=== PATIENT | female | born 1935 | race Caucasian/White ===

== ENCOUNTER 2023-09-08 14:49 | Emergency (ER) | payer MEDICARE, SELFPAY ==
[2023-09-08 14:55] VITALS: BP 140/57
--- NOTE | 2023-09-08 15:40 | ED.GENMED ---
History of Present Illness
General
Chief Complaint: Fall
Source: patient
Exam Limitations: none
Time Seen by Provider: 09/08/23 15:25
Nursing documentation reviewed up to this point in time: agreed with
Travel History
Have you had any contact with someone who has COVID-19?: No
Do you have any symptoms of coronavirus? Fever > 100 degrees, chills, cough, shortness of breath, sore throat, loss of taste or smell, muscle aches, or headache?: No
History of Present Illness
History of Present Illness:
87-year-old female with [place] history of A-fib currently on Xarelto, hypertension hyperlipidemia hypothyroidism presenting to the emergency department today after she lost her balance and fell hitting her upper back did not hit her head did not
lose consciousness ongoing upper back pain has been icing it for the last few hours but has had ongoing pain since. Denies numbness weakness abdominal pain chest pain shortness of breath.
Past History
Past History
ED Past Medical History: Arrthythmia (Paroxysmal atrial fibrillation), HTN, Hypothyroidism and Other (Osteoarthritis)
ED Past Surgical History: Appendectomy and Cardiac (Atrial myxoma removal 2018)
Patient has exhibited threatening behavior?: No
PSI?: No
Social History
Tobacco: Non-smoker
Alcohol: None
Personal:
Living: with family
Employment: Retired
Family History
Family History: Other (Noncontributory)
Review of Systems
Review of Systems
Allergies reviewed?: Yes
All Other Systems: ROS reviewed and negative except as documented in HPI and ROS
Phy Exam
Physical Exam
Physical Exam:
GENERAL: Alert , in no apparent distress
EYE: pupils equal and reactive
NECK: Supple, no significant adenopathy.
ENT: o/p clr, mmm.
CARDIAC: Regular rate and rhythm .
LUNGS: Clear breath sounds bilaterally, no acute respiratory distress, no wheezes/rales/rhonchi
ABDOMEN: Soft, without focal tenderness, no r/g, no cvat
NEUROLOGICAL: Alert and oriented, no focal neuro deficits
SKIN: Warm and dry, skin intact.
MUSCULOSKELETAL: Tenderness palpation to the upper back at the lower cervical and upper thoracic region swelling or bruising at midline some upper thoracic paraspinal muscle tenderness. No tenderness to the ribs clear lungs. No edema, well
perfused.
PSYCH: Normal and appropriate interaction.
Course
Orders/Labs/Results
Orders:
Orders
09/08/23 15:32
CT Cervical Spine W/o Iv Contr Urgent
Comment:
Reason For Exam: lower cervical pain after fall
CT Head W/o Iv Contrast Urgent
Comment:
Reason For Exam: fall on thnners
CT Thoracic Spine W/o Iv Contr Urgent
Comment:
Reason For Exam: upper thoracic pain after fall
09/08/23 16:47
Acetaminophen [Tylenol] 1,000 mg PO NOW STA
Vital Signs
Initial and Last Documented VS:
Initial Vital Signs
Temp Pulse Resp BP Pulse Ox
97.7 F 52 18 140/57 97
09/08/23 14:55 09/08/23 14:55 09/08/23 14:55 09/08/23 14:55 09/08/23 14:55
Last Documented Vital Signs
Temp Pulse Resp BP Pulse Ox
97.7 F 52 18 140/57 97
09/08/23 14:55 09/08/23 14:55 09/08/23 14:55 09/08/23 14:55 09/08/23 14:55
MDM/Problems Addressed
MDM/Problems Addressed:
87-year-old female presenting to the emergency department today with concerns of back discomfort after she lost her balance and fell hitting her upper back does not believe she hit her head but is on Xarelto. Normal neurologic evaluation here clear
lungs tenderness to lower cervical and upper thoracic region. Plan for CT scan for further assessment. Patient's pain well-controlled with Tylenol able to ambulate well here CT scan of the head and neck without acute abnormalities thoracic spine
showing a T3 compression fracture. Patient with no neurologic symptoms. Appears to be stable for outpatient follow-up as needed. Otherwise doing well here ambulating well. Return precautions given.
*Critical Care Note
Total Time (30-74mins, 75-104mins- exclusive of procedures): Not Applicable
ED Attending Note
-
Portions of this chart may have been created with voice recognition software.� Occasional wrong word or��sound alike� substitutions may have occurred due to the inherent limitations of voice recognition software.
Discharge Plan
Departure
Patient Disposition: Home (Routine Discharge)
Date of Disposition: 09/08/23
Time of Disposition: 17:05
Patient with high blood pressure during this ER visit?: No
Condition: Good
Covid-19: Not Applicable
Discharge Problem:
Compression fracture of thoracic vertebra
Instructions: Vertebral compression fracture
Prescriptions:
No Action
losartan 50 MG tablet
100 mg PO DAILY
atorvastatin 40 MG tablet
40 mg PO QPM
levothyroxine 88 MCG tablet
88 mcg PO DAILY
metoprolol succinate 25 MG tablet extended release 24 hr
12.5 mg PO DAILY
multivitamin Tablet
1 tab PO QPM
amlodipine 5 mg Tablet
5 mg PO DAILY
Xarelto 20 mg Tablet
20 mg PO QPM
acetaminophen [Tylenol Extra Strength] 500 MG tablet
1,000 mg PO Q6HPRN PRN (Reason: pain)
calcium carbonate-vitamin D3 600 mg-5 mcg (200 unit) Tablet
1 tab PO QPM
Systane (propylene glycol) 0.4-0.3 % Drops
1 drp BOTH EYES BID PRN (Reason: Eye condition)
spironolactone 25 mg tablet
25 mg PO DAILY
coenzyme Q10 [CoQ-10] 100 mg Capsule
100 mg PO QPM
Referrals:
Severo Ratliff MD [Family Provider] -
Anyi Hickey MD [Active] - Follow up in 1 week
Activity Restrictions/Additional Instructions:
You came to the emergency department today with concerns of a fall where you hit your back. You are found to have a T3 compression fracture but no other emergent findings. This is treated with pain medication and should heal over time. If
symptoms are ongoing please follow closely with neurosurgery for further recommendation and assessment. Return to the emergency department for any worsening, new or concerning symptoms.
Interventions
Interventions:
*Risk Screen - Suicide Last Done: 09/08/23 15:44
*General Assessment Last Done: 09/08/23 15:44
*Neglect/Abuse Screening Last Done: 09/08/23 15:44
ED- Fall Risk Assessment Last Done: 09/08/23 15:44
*ED COVID-19 Vaccine History Last Done: 09/08/23 15:44
ED- Neurological Assessment Last Done: 09/08/23 15:43
ED-Skin Assessment Last Done: 09/08/23 16:29
Discharge Date and Time
Print Language: BARBADIAN
[2023-09-08] MEDS: TYLENOL 1000 MG PO (17:00)
== END 2023-09-08 17:23 | disposition home or self-care (01) ==
LOC: EMR 14:49
PROVIDERS: EMERGENCY PHYSICIAN Emergency Medicine; FAMILY PHYSICIAN Internal Medicine
DX: M48.54XA Collapsed vertebra, not elsewhere classified, thoracic region, initial encounter for fracture (principal); S20.229A Contusion of unspecified back wall of thorax, initial encounter; W19.XXXA Unspecified fall, initial encounter; I48.0 Paroxysmal atrial fibrillation; I10 Essential (primary) hypertension; E03.9 Hypothyroidism, unspecified; M19.90 Unspecified osteoarthritis, unspecified site; E78.5 Hyperlipidemia, unspecified; Z79.01 Long term (current) use of anticoagulants
CPT/HCPCS: 99284; 70450; 72125; 72128

== ENCOUNTER → 2023-10-07 09:33 | Outpatient (REF) | payer MEDICARE, SELFPAY ==
[2023-10-07 11:56] LABS: ALT (SGPT) 26 U/L (0-35); AST (SGOT) 28 U/L (14-36); Albumin 4.1 g/dl (3.5-5.0); Alkaline Phosphatase 77 U/L (38-126); Blood Urea Nitrogen 11 mg/dl (7-17); Calcium 9.9 mg/dl (8.4-10.2); Carbon Dioxide 31 mmol/L (22-30); Chloride 100 mmol/L (98-107); Glucose 102 mg/dl (70-99); HDL Cholesterol 78 mg/dl; LDL Cholesterol, Calculated 82 mg/dl; Potassium 4.3 mmol/L (3.5-5.1); Sodium 139 mmol/L (135-145); Total Bilirubin 0.3 mg/dl (0.2-1.3); Total Cholesterol 176 mg/dl (50-199); Total Protein 6.8 g/dl (6.3-8.2); Triglyceride 83 mg/dl (10-149); Very Low Density Lipoprotein 16 mg/dl (0-30); eGFR > 60.00
[2023-10-07 12:26] LABS: TSH 1.18 uIU/ml (0.47-4.68)
== END ==
LOC: REG 09:33
PROVIDERS: ATTENDING PHYSICIAN Internal Medicine Cardiovascular Disease; FAMILY PHYSICIAN Urology Pediatric Urology; REFERRING PHYSICIAN Internal Medicine
DX: E78.5 Hyperlipidemia, unspecified (principal); I10 Essential (primary) hypertension; T46.2X Poisoning by, adverse effect of and underdosing of other antidysrhythmic drugs
CPT/HCPCS: 36415; 80053; 80061; 84443

== ENCOUNTER → 2024-01-23 14:23 | Outpatient (REF) | payer MEDICARE, SELFPAY | LOC: PAVMRI 14:23 | PROVIDERS: ATTENDING PHYSICIAN Orthopaedic Surgery; FAMILY PHYSICIAN Internal Medicine | DX: M54.16 Radiculopathy, lumbar region (principal) | CPT/HCPCS: 72148 ==

== ENCOUNTER → 2024-04-09 10:29 | Outpatient (REF) | payer MEDICARE, SELFPAY ==
[2024-04-09 13:05] LABS: ALT (SGPT) 27 U/L (0-35); AST (SGOT) 27 U/L (14-36); Albumin 4.3 g/dl (3.5-5.0); Alkaline Phosphatase 51 U/L (38-126); Blood Urea Nitrogen 11 mg/dl (7-17); Calcium 9.2 mg/dl (8.4-10.2); Carbon Dioxide 31 mmol/L (22-30); Chloride 99 mmol/L (98-107); Glucose 87 mg/dl (70-99); HDL Cholesterol 95 mg/dl; LDL Cholesterol, Calculated 75 mg/dl; Potassium 4.2 mmol/L (3.5-5.1); Sodium 141 mmol/L (135-145); Total Bilirubin 0.4 mg/dl (0.2-1.3); Total Cholesterol 189 mg/dl (50-199); Total Protein 6.8 g/dl (6.3-8.2); Triglyceride 95 mg/dl (10-149); Very Low Density Lipoprotein 19 mg/dl (0-30); eGFR > 60.00
[2024-04-09 13:32] LABS: TSH 3.62 uIU/ml (0.47-4.68)
== END ==
LOC: REG 10:29
PROVIDERS: ATTENDING PHYSICIAN Internal Medicine Cardiovascular Disease
DX: E78.5 Hyperlipidemia, unspecified (principal); I10 Essential (primary) hypertension; E03.9 Hypothyroidism, unspecified
CPT/HCPCS: 36415; 80053; 80061; 84443

== ENCOUNTER 2024-07-12 08:16 | Inpatient (IN) | payer MEDICARE, SELFPAY ==
[2024-06-14 10:38] LABS: Hematocrit 34.2 % (37.0-47.0); Hemoglobin 10.8 g/dL (12.0-16.0); Mean Corp Hgb Conc. 31.6 g/dL (33.0-37.0); Mean Corpuscular Hgb 28.4 pg (27.0-31.0); Mean Platelet Volume 9.1 fL (7.4-10.4); Platelet Count 256 10^3/uL (130-400); White Blood Cell Count 5.3 10^3/uL (4.8-10.8)
[2024-06-14 11:06] LABS: ALT (SGPT) 38 U/L (0-35); AST (SGOT) 33 U/L (14-36); Albumin 4.5 g/dl (3.5-5.0); Alkaline Phosphatase 67 U/L (38-126); Blood Urea Nitrogen 14 mg/dl (7-17); Calcium 8.7 mg/dl (8.4-10.2); Carbon Dioxide 29 mmol/L (22-30); Chloride 96 mmol/L (98-107); Glucose 100 mg/dl (70-99); Potassium 4.2 mmol/L (3.5-5.1); Sodium 135 mmol/L (135-145); Total Bilirubin 0.6 mg/dl (0.2-1.3); eGFR > 60.00
[2024-06-14 14:11] VITALS: BMI 26.1
[2024-06-14 16:29] LABS: Iron 42 ug/dl (37-170)
[2024-06-14 16:38] LABS: Percent Saturation 11 % (20-50); Total Iron Binding Capacity 361 ug/dl (265-497)
[2024-06-14 17:41] LABS: Ferritin 7.4 ng/ml (11.1-264.0)
[2024-06-14 17:55] LABS: Vitamin B12 566 pg/ml (239-931)
[2024-07-05 11:54] VITALS: BMI 26.1
[2024-07-12] VITALS (30 sets, daily range): BP systolic 71–149; BP diastolic 39–100; PULSE 66; O2SAT 87–95; BMI 26.1
[2024-07-12] MEDS: NORMOSOL-R/PLASMALYTE-A 1000 IV (08:35)
[2024-07-12] MEDS: CELEBREX 200 MG PO (08:46)
[2024-07-12] MEDS: TYLENOL 650 MG PO ×3 (08:46→23:26)
--- NOTE | 2024-07-12 12:30 | OR.RPT ---
Operative Report
Operative Report
Orthopaedic Surgery Operative Note
DATE OF OPERATION: 07/12/2024
PREOPERATIVE DIAGNOSES: Left hip post traumatic arthritis, history of left femoral neck fracture
POSTOPERATIVE DIAGNOSES: Same
OPERATION PERFORMED: Left conversion total hip arthroplasty
SURGEON: Pablo Gu MD
CARGO SERVICES COORDINATOR: Venkat Gu PA-C who helped with patient and limb positioning and retraction
ANESTHESIA: Spinal
COMPLICATIONS: None.
ESTIMATED BLOOD LOSS: 50 mL.
DRAINS: None
SPECIMEN: None
IMPLANTS:
Biomet G7 Acetabular shell, cluster hole, 50mm
Biomet G7 highly crosslinked PE liner, neutral
Chrissy Heritage femoral stem, size 15 standard offset
Chrissy Trilogy Acetabular bone screw, 6.5mm x1
Biolox Ceramic Head, size 36mm, -3.5mm
Chrissy distal centralizer
Kenji bone plug, medium
EXPLANTS:
Mecca Cannulated 6.5mm screws x1
INDICATIONS: The patient is an 88 year-old female who sustained a left femoral neck fracture about 5 years ago. She underwent L femoral neck percutaneous pinning which healed. She developed post traumatic osteoarthritis and had daily chronic pain. I
reviewed the x-rays with the patient and we discussed treatment options. She failed to improve with nonoperative treatments. Shared decision was to proceed with surgical treatment with conversion to a total hip arthroplasty with removal of hardware.
The patient understood the risks which included, but were not limited to, bleeding, infection, failure to relieve pain, more pain than preop, damage to blood vessels and nerves, need for reoperation, mechanical failure of the implants, wound healing
problems, stiffness, instability, blood clot, pulmonary embolism, myocardial infarction, pneumonia, arrhythmia, CVA, and . The patient accepted these risks and wished to proceed. All questions were answered, and informed consent was obtained.
PROCEDURE IN DETAIL: The patient was identified in the preoperative holding area. The left hip was identified as the operative site. The patient was taken in the operating room and transferred to the operative table. General anesthesia was
performed. IV antibiotics and tranexamic acid were administered. The patient was placed in the lateral position with Stulberg hip positioners. Axillary roll was placed. The down leg was well padded. All bony prominences were well padded. The
operative limb was prepped and draped in the usual sterile fashion.
Time out was performed. A posterolateral approach to the hip was used. The skin incision was centered over the greater trochanter. This was taken down sharply through subcutaneous tissues. Meticulous hemostasis was achieved throughout the case with
electrocautery. We split the fascia alpesh in line with skin incision. There were extensive adhesions between the trochanter and the ITB including thick fibrous bursitis. The bursa was excised. I split the gluteus steve bluntly. We cauterized all
crossing vessels as we split it. I palpated the sciatic nerve and made sure it was well posterior in the operative field. It was protected throughout the case.
The distal screw was idenitfied about the lateral posterior femur. Two of the other screws had been removed prior by another surgeon at [facility]. This screw and washer were removed easily without incident. The gluteus medius and minimus were identified
and retracted anteriorly with a cobra retractor. I performed a posterior capsulotomy and tagged the edge of the capsule to aid in retraction as well as to reference length. Once the hip capsule was resected, the hip was dislocated. There was some
posterior angulation of the healed femoral neck. There was shortening as well. I performed a femoral neck osteotomy approximately 5 mm above the lesser trochanter, as per preoperative templating. The femoral head measured 47mm in outer diameter. I
placed a curve hohmann retractor over the anterior lip of the acetabulum between the labrum and the anterior hip capsule. A second retractor was placed inferiorly just distal to the transverse acetabular ligament. Circumferential view of the
acetabulum was achieved. I incised the labrum and pulvinar with electrocautery. I started with a 45mm reamer and reamed down to the medial wall. I then sequentially reamed up to a 49mm reamer. This gave a nice bed of bleeding bone with excellent
column support anteriorly and posteriorly. I impacted the acetabular shell in approximately 40 degrees of abduction and 20 degrees of anteversion. I matched the anteversion of the transverse acetabular ligament. I also made sure that the anterior
rim of the socket was not proud of the anterior wall to minimize the chance of iliopsoas tendinitis. I confirmed the cup was well-seated. I placed 1 ileal screw in the posterior superior quadrant. I then impacted a neutral liner and confirmed it was
well seated with the locking mechanism.
Attention was turned to the femur. Box osteotome and Charnley awe were used to open the canal. Fibrinous tissue was removed from proximal lateral femur where the screws had been. The femur was sequentially broached to size 15 which had appropriate
fit and fill. A trial head was placed with standard offset neck and the hip was reduced. Leg length and offset were checked and found to be appropriate. The hip was taken through complete range of motion and found to be stable in extension, the
position of sleep, and at 90 degrees of flexion and internal rotation.
Trials were removed and the femoral canal was prepared with irrigation and ribbon gauze packing sequentially. A cement restrictor was placed into the femoral canal 1cm distal to the tip of the femoral stem. This was measured off the trial femoral
stem. Once the femoral canal was prepared, the cement was mixed. Once doughy in consistency, the cement was pressurized into the canal with a cement gun. The stem was then carefully inserted into the canal with care to minimize rotation or
micromotion. Excess cement was removed. Once the cement was polymerized, the joint was irrigated copiously. The acetabular component was inspected to be free of cement particles and other debris. The final head was impacted onto clean and dry
trunion. Leg length and stability were checked again and found to be appropriate. The sciatic nerve was inspected and noted to be free of tension and uninjured.
A dilute betadine soak was performed for approximately 3 minutes, and then the hip was copiously irrigated. I repaired the capsule, piriformis, and conjoint tendon with #2 Ethibond through drill holes in the greater trochanter. Local anesthetic was
injected. The fascia alpesh was closed with #1 PDS in running fashion. The subcutaneous tissues were closed with 2-0 PDS in running fashion. The skin was reapproximated with 3-0 Monocryl subcuticular suture. I placed a Prineo dressing followed by a
Mepilex Ag dressing. The patient awoke from anesthesia without difficulty. Leg lengths were checked on the hospital bed and noted to be equal. Sponge and instrument counts were correct x2 at the end of the case.
I was present and participated in the entire procedure. I checked leg length at the ankles after transfer on the bed which was equal. The patient was sent to the recovery room in stable condition.
Bobby Gu MD
[2024-07-12] MEDS: SUBLIMAZE 50 MCG IV ×2 (12:34→13:31)
--- NOTE | 2024-07-12 12:56 | W.PN.UPDATE ---
Update Note
Progress Note Update
Post-traumatic OA w/ previous L femoral neck fx s/p Conversion to L SUE w/ Dr Gu 07/12/24
DVT prophylaxis - Xarelto at modified dosing, b/l venous foot pumps
- Will resume Xarelto 20 mg PO qPM on POD 3 if hemodynamically stable
HTN - + parameters - monitor BP
A fib/flutter s/p PVI/CTI and prolonged QT - monitor on tele
- Continue Amiodarone
- Xarelto as stated above
- Minimize QT prolongation meds such as Zofran
HFpEF - reduce hourly IVF rate to prevent fluid overload
- Resume diuretic but w/ SBP parameters to minimize post-surgical hypotension
- Monitor I&Os
Anemia 2* iron deficiency - low ferritin, borderline low iron pre-op - infuse IV iron today
- H&H in AM
- Consider oral iron upon d/c
HLD
Nonobstructive CAD
Right atrial myxoma excision 2017
DDD
Hypothyroidism
Postoperative hemangioma
[2024-07-12] MEDS: NSS 1000 IV (14:18)
[2024-07-12] MEDS: FERRLECIT 110 MG IV (14:20)
[2024-07-12] MEDS: ULTRAM 50 MG PO (15:21)
--- NOTE | 2024-07-12 17:40 | PTCARENOTE ---
Telephone report received from [facility]ALL[facility]; patient arrived @17:40 in bed, IVF infusing, 2L O2; AAOx3, (L) hip pain acceptable at level 5; admission history obtained at bedside; detailed report will be given to incoming nightshift RN to continue
with assessment and care.
[2024-07-12] MEDS: ANCEF 5 IV (18:44)
[2024-07-12] MEDS: XARELTO 10 MG PO (18:45)
[2024-07-12] MEDS: SENOKOT 17.2 MG PO (20:55)
[2024-07-12] MEDS: COLACE 100 MG PO (20:55)
[2024-07-12] MEDS: DECADRON 4 MG PO (20:55)
[2024-07-12] MEDS: BACTROBAN 2% OINTMENT 1 APPLIC NASAL (20:55)
[2024-07-12] MEDS: NEURONTIN 300 MG PO (21:19)
[2024-07-12] MEDS: PEPCID 20 MG PO (21:20)
[2024-07-13] MEDS: ANCEF 5 IV (01:02)
[2024-07-13] MEDS: TYLENOL 650 MG PO ×2 (06:32→12:15)
--- NOTE | 2024-07-13 07:31 | W.PN.ORTHO ---
Today's Communication / Plan
-
88-year-old female POD #1 Conversion L SUE 07/12/[address] Gu.
--> Post-traumatic OA w/ previous L femoral neck fx s/p Conversion to L SUE w/ Dr Gu 07/12/24.
- WBAT LLE with use of walker for ambulatory assistance.
- PT/OT Evaluation this AM. THP's.
- H&H this AM pending.
- DVT prophylaxis - Xarelto at modified dosing, b/l venous foot pumps. Will resume Xarelto 20 mg PO qPM on POD 3 if hemodynamically stable.
- Outpatient PT to begin at [facility] Monday07/16/2024. Script printed and placed in patient's chart.
- Post-operative medications sent to patient's pharmacy on file.
- Ice therapy for edema control.
- Mepilex dressing to remain in place until post-op visit.
- Follow-up as outpatient 2 weeks post-op. Appointment scheduled 07/26/2024 @ 11:00 AM.
- Plan for D/C later today after PT/OT Eval and as long as H&H stable.
Assessment
.
Distal Motor Intact: Yes
Dressing:
Mepilex dressing clean, dry and intact.
Calf is soft and nontender to palpation.
Able to plantarflex and dorsiflex left ankle.
NVI distally.
Assessment:
Post-traumatic OA w/ previous L femoral neck fx s/p Conversion to L SUE w/ Dr Gu 07/12/24.
Plan
.
Surgery / Date: Conversion L TKA 07/12/[address] Gu
DVT Prophylaxis: Other (Xarelto)
Activity:
Out of bed.
PT/OT.
WBAT LLE. THP's.
Discharge Plan: Home w/ Outpatient PT
Discharge Information:
Appreciate CM.
Subjective
.
.:
Patient resting comfortably in bed. Reports some discomfort to her left hip, although controlled with current medication regimen. She denies any paresthesias. PT/OT evaluation pending this AM. H&H also pending. She denies any acute complaints or
concerns at this time.
Vital Signs and Labs
.
Vital Signs and Labs:
Lab Results
06/14/24 09:42
Temp Pulse Resp BP Pulse Ox
97.6 F 58 18 121/55 92
07/12/24 23:45 07/12/24 23:45 07/12/24 23:45 07/12/24 23:45 07/12/24 23:45
Non-invasive Hgb result: 9.1
--- NOTE | 2024-07-13 07:40 | W.DS.TRANS ---
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
-
Discharge Instructions:
Document # [id number]
Sleep Apnea Risk Low
Discharge Diagnosis/Procedures Post-traumatic OA w/ previous L femoral neck
fracture s/p Conversion to L SUE w/ Dr Gu
Diet Low Cholesterol,Low Sodium
Activity As tolerated,With Walker
Driving Restrictions Not until seen by your Dr
Bathing Restrictions OK to Shower
Other Services PT
Wound Care Leave dressing on until seen by surgeon's office
for follow-up in 2 weeks.
Specialty Instructions Weigh Daily
Instructions:
Stand-Alone Forms: Total Hip/Knee Replacement D/C
Changes to Home Medications: No
Discharge Medications:
DC Medications w/original date entered in [facility]
atorvastatin 40 mg tablet 40 mg PO QPM High cholesterol 01/04/18
levothyroxine 88 mcg tablet 88 mcg PO DAILY Thyroid 01/04/18
multivitamin 1 tab PO QPM Supplement 04/20/22
rivaroxaban 20 mg tablet (Xarelto) 20 mg PO QPM Blood clot prevention/tx 04/20/22
calcium 600 mg (as carbonate)-vitamin D3 5 mcg (200 unit) tablet 1 tab PO QPM Supplement 07/01/22
peg 400-propylene glycol 0.4 %-0.3 % eye drops (Systane (propylene glycol)) 1 drp BOTH EYES BID PRN Eye condition 07/01/22
coenzyme Q10 100 mg capsule (CoQ-10) 100 mg PO QPM 02/08/23
amiodarone 200 mg tablet 200 mg PO DAILY 06/12/24
cefadroxil 500 mg capsule 500 mg PO BID infection prevention #14 caps 06/14/24
dexamethasone 4 mg tablet 4 mg PO BID inflammation #6 tabs 06/14/24
gabapentin 300 mg capsule 300 mg PO HS sleep/pain #10 caps 06/14/24
mupirocin 2 % topical ointment 1 applic topical BID infection prevention #1 tube 06/14/24
tramadol 50 mg tablet 50 mg PO Q6H PRN 1 tab moderate pain, 2 if severe #30 tabs 06/14/24
acetaminophen 500 mg tablet (Tylenol Extra Strength) 1,000 mg (2 x 500 mg) PO Q8H #60 tabs 07/12/24
amlodipine 5 mg tablet 5 mg PO DAILY Blood pressure #1 tab 07/12/24
chlorthalidone 25 mg tablet 25 mg PO DAILY #1 tab 07/12/24
docusate sodium 100 mg capsule 100 mg PO BID #30 caps 07/12/24
losartan 50 mg tablet 100 mg (2 x 50 mg) PO DAILY Blood pressure #1 tab 07/12/24
prochlorperazine maleate 5 mg tablet 5 mg PO TID PRN nausea and vomiting #30 tabs 07/12/24
rivaroxaban 10 mg tablet (Xarelto) 10 mg PO QPM #2 tabs 07/12/24
sennosides 8.6 mg tablet (Jazmin-zachary) 17.2 mg (2 x 8.6 mg) PO BID #30 tabs 07/12/24
Home Medication Changes
Pending Results: Yes
Additional Pending Results:
PT/OT Eval
H&H
Total time spent discharging patient (in min): 45 Minutes
[2024-07-13 07:45] VITALS: BP 115/54
[2024-07-13 07:47] LABS: Hematocrit 27.6 % (37.0-47.0)
[2024-07-13] MEDS: BACTROBAN 2% OINTMENT 1 APPLIC NASAL (08:24)
[2024-07-13] MEDS: DECADRON 4 MG PO (08:24)
[2024-07-13] MEDS: COLACE 100 MG PO (08:24)
[2024-07-13] MEDS: SENOKOT 17.2 MG PO (08:24)
[2024-07-13] MEDS: ULTRAM 50 MG PO (08:34)
[2024-07-13] MEDS: PREVNAR 20 0.5 ML IM (08:34)
[2024-07-13 10:45] VITALS: BP 120/53; BP 128/54; PULSE 55; O2SAT 89
--- NOTE | 2024-07-13 11:13 | CM ---
Addendum entered by Nazia Turner 07/13/24 12:20:
Accepted by Mikey - family at bedside and updated
IMM given
Plan - home with [facility]
f - [phone]
Original Note:
Met with pt at bedside
Pt reports she lives with her in a 2 story home; no step to enter, FF set-up
Independent at baseline, ambulates with single point cane, drives
DME - rolling walker, single point cane, shower chair, raised toilet seat, hip kit
SNF - [facility] in past
HH - [facility] in past
Has ride at discharge
PCP - Ana Paula Dietrich
Pharm - [facility]
Pts daughter plans to stay with pt for a few days and assist as needed
PT recs HH - spoke with pt - requesting [facility]
Referral sent in [facility]
Plan - anticipate home with [facility]
f - [phone]
[2024-07-13 11:27] VITALS: BP 134/59
== END 2024-07-13 14:25 | disposition home health service (06) | DRG 467 ==
LOC: 2 SOUTH 08:16
PROVIDERS: Student in an Organized Health Care Education/Training Program; ADMITTING PHYSICIAN Orthopaedic Surgery; FAMILY PHYSICIAN Internal Medicine; REFERRING PHYSICIAN Internal Medicine Cardiovascular Disease
PROC: 0SRB049 Replacement of Left Hip Joint with Ceramic on Polyethylene Synthetic Substitute, Cemented, Open Approach (ICD-10-PCS; 2024-07-12)
PROC: 0SNB0ZZ Release Left Hip Joint, Open Approach (ICD-10-PCS; 2024-07-12)
PROC: 0SPB0JZ Removal of Synthetic Substitute from Left Hip Joint, Open Approach (ICD-10-PCS; 2024-07-12)
PROC: 3E0234Z Introduction of Serum, Toxoid and Vaccine into Muscle, Percutaneous Approach (ICD-10-PCS; 2024-07-13)
DX: M12.552 Traumatic arthropathy, left hip (principal); I48.92 Unspecified atrial flutter; I50.30 Unspecified diastolic (congestive) heart failure; S32.4 Fracture of acetabulum; W19.XXXS Unspecified fall, sequela; I48.91 Unspecified atrial fibrillation; I11.0 Hypertensive heart disease with heart failure; M76.32 Iliotibial band syndrome, left leg; D50.9 Iron deficiency anemia, unspecified; E78.5 Hyperlipidemia, unspecified; G89.29 Other chronic pain; M24.652 Ankylosis, left hip; I25.10 Atherosclerotic heart disease of native coronary artery without angina pectoris; E03.9 Hypothyroidism, unspecified; D64.9 Anemia, unspecified; Z79.890 Hormone replacement therapy; Z88.5 Allergy status to narcotic agent; Z88.8 Allergy status to other drugs, medicaments and biological substances; Z91.041 Radiographic dye allergy status; Z23 Encounter for immunization; Z79.01 Long term (current) use of anticoagulants
CPT/HCPCS: 36415; 73502; 80053; 82607; 82728; 83036; 83540; 83550; 85014; 85018; 85027; 86850; 86900; 86901; 87070; 90677; 97110; 97116; 97163; 97167; 97530; 97535; C1713; C1776; G0009; J2916

== ENCOUNTER → 2024-09-11 08:46 | Outpatient (REF) | payer MEDICARE, SELFPAY | LOC: RAD 08:46 | PROVIDERS: ATTENDING PHYSICIAN Orthopaedic Surgery; FAMILY PHYSICIAN Internal Medicine | DX: Z96.642 Presence of left artificial hip joint (principal); R60.0 Localized edema; M79.605 Pain in left leg | CPT/HCPCS: 93971 ==

== ENCOUNTER 2024-09-16 15:13 | Emergency (ER) | payer MEDICARE, SELFPAY ==
[2024-09-16 15:16] VITALS: BP 164/68
--- NOTE | 2024-09-16 16:02 | ED.GENMED ---
History of Present Illness
General
Chief Complaint: Musculo-Skeletal Complaint
Source: patient
Exam Limitations: none
Time Seen by Provider: 09/16/24 16:01
Nursing documentation reviewed up to this point in time: agreed with
History of Present Illness
History of Present Illness:
The patient is a pleasant 88-year-old female with a past medical history of coronary artery disease and A-fib, on Xarelto, who was encouraged by her physical therapist today to come to the ED after suffering a fall that occurred 5 days ago. Patient
reports that about 5 days ago, she was walking in her home on hardwood floor and her sneaker got stuck on the hardwood floor, causing her to fall forward. Patient reports that she hit the left side of her head. She denies loss of consciousness,
she denies headache, she denies nausea and vomiting. She denies vision changes. She denies chest pain or shortness of breath. Patient reports that she feels well when to come here but her physical therapist today encouraged her to get checked
out. Patient recently had left hip surgery. She denies any increased pain of the left hip.
Past History
Past History
ED Past Medical History: Arrthythmia (Paroxysmal atrial fibrillation), HTN, Hypothyroidism and Other (Osteoarthritis)
ED Past Surgical History: Appendectomy and Cardiac (Atrial myxoma removal 2018)
Patient has exhibited threatening behavior?: No
PSI?: No
Social History
Tobacco: Non-smoker
Alcohol: None
Personal:
Living: with family
Employment: Retired
Family History
Family History: Other (Noncontributory)
Review of Systems
Review of Systems
Allergies reviewed?: Yes
All Other Systems: ROS reviewed and negative except as documented in HPI and ROS
Constitutional: Reports no symptoms
EENT: Reports no symptoms
Respiratory: Reports no symptoms
Cardiac: Reports no symptoms
ABD/GI: Reports no symptoms
: Reports no symptoms
Musculoskeletal: Reports other
Skin: Reports no symptoms
Neurological: Reports no symptoms
Endocrine: Reports no symptoms
Hematologic/Lymphatic: Reports no symptoms
Psychiatric: Reports no symptoms
Phy Exam
Physical Exam
Physical Exam:
Physical Exam
General: no apparent distress, not acutely ill, well and comfortable appearing. Patient has mild tenderness of left frontal scalp area.
Neck: supple. Nontender of C-spine
Heart: s1/s2 regular rate and rhythm, no murmur. equal radial pulses. No vertebral spine tenderness
Lungs: no acute respiratory distress. clear bilaterally
Abdomen: normal bowel sounds. not tender. no CVAT. Soft and nontender throughout
Neuro: alert and orientedx3. no focal neurological deficits
Skin: no rash
Psychiatric: well kept. interactive and cooperative
Extremities: no edema. no calf tenderness. negative homans. good distal pulses
Course
Orders/Labs/Results
Orders:
Orders
09/16/24 15:25
CT Head W/o Iv Contrast Urgent
Comment:
Reason For Exam: fall
CR Hip - LT w/wo Pel 2-3 Vw* Urgent
Comment:
Reason For Exam: fall
Include a pelvis x-ray?: Yes
Vital Signs
Initial and Last Documented VS:
Initial Vital Signs
Temp Pulse Resp BP Pulse Ox
97.9 F 62 19 164/68 96
09/16/24 15:16 09/16/24 15:16 09/16/24 15:16 09/16/24 15:16 09/16/24 15:16
Last Documented Vital Signs
Temp Pulse Resp BP Pulse Ox
97.9 F 62 19 164/68 96
09/16/24 15:16 09/16/24 15:16 09/16/24 15:16 09/16/24 15:16 09/16/24 15:16
MDM/Problems Addressed
Differential Diagnosis Includes:
Closed head injury, subdural hematoma, subarachnoid hemorrhage
MDM/Problems Addressed:
Patient presents after having an acute fall 5 days ago
Chronic conditions affecting care: HTN
Acute Exacerbation and/or Progression of Chronic Illness:
Patient is acutely hypertensive, likely due to being in the ED and being slightly anxious
Acute Exacerbation and/or Progression of Chronic Illness: HTN
*Radiology
Radiology exam reviewed: preliminary read by ED provider (Left hip x-ray reviewed by me. No acute fracture) and radiology read reviewed
*Pulse Oximetry
Patient hypoxic: no
*EKG
Interpreted by ED Provider?: NA
*Brine Tank Operator Interpretation
Rate: Brine Tank Operator- N/A
*Critical Care Note
Total Time (30-74mins, 75-104mins- exclusive of procedures): Not Applicable
Update Note
Update Note:
Patient looks extremely well and comfortable. Injury occurred 5 days ago and patient still has no headache, dizziness, nausea vomiting or visual changes. She is walking comfortably. There is no sign of C-spine pain to suggest injury.
ED Attending Note
-
Portions of this chart may have been created with voice recognition software.� Occasional wrong word or��sound alike� substitutions may have occurred due to the inherent limitations of voice recognition software.
Discharge Plan
Departure
Patient Disposition: Home (Routine Discharge)
Date of Disposition: 09/16/24
Time of Disposition: 16:10
Patient with high blood pressure during this ER visit?: Yes
Condition: Good
Covid-19: Not Applicable
Discharge Problem:
Closed head injury, Fall from slip, trip, or stumble, Contusion of scalp
Instructions: Head injury in adults, Contusion (DC), BLOOD PRESSURE
Prescriptions:
No Action
atorvastatin 40 MG tablet
40 mg PO QPM
levothyroxine 88 MCG tablet
88 mcg PO DAILY
multivitamin Tablet
1 tab PO QPM
Xarelto 20 mg Tablet
20 mg PO QPM
calcium carbonate-vitamin D3 600 mg-5 mcg (200 unit) Tablet
1 tab PO QPM
Systane (propylene glycol) 0.4-0.3 % Drops
1 drp BOTH EYES BID PRN (Reason: Eye condition)
coenzyme Q10 [CoQ-10] 100 mg Capsule
100 mg PO QPM
amiodarone 200 mg tablet
200 mg PO DAILY
mupirocin 2 % ointment
1 applic topical BID Qty: 1 0RF
Patient Comments:
Patient administered this medication this am 07/12/23 @06:30. Patient started this medication on 07/09/24 in the morning.
cefadroxil 500 mg capsule
500 mg PO BID Qty: 14 0RF
Rx Instructions:
*Take w/ food
*Take w/ probiotic
*POST-OP USE
dexamethasone 4 mg tablet
4 mg PO BID Qty: 6 0RF
Rx Instructions:
take with food
post-op use only
tramadol 50 mg tablet
50 mg PO Q6H PRN (Reason: 1 tab moderate pain, 2 if severe) Qty: 30 0RF
Rx Instructions:
ongoing therapy
gabapentin 300 mg capsule
300 mg PO HS Qty: 10 0RF
docusate sodium 100 mg Capsule
100 mg PO BID Qty: 30 0RF
prochlorperazine maleate 5 mg Tablet
5 mg PO TID PRN (Reason: nausea and vomiting) Qty: 30 0RF
sennosides [Jazmin-zachary] 8.6 mg Tablet
17.2 mg PO BID Qty: 30 0RF
Xarelto 10 mg Tablet
10 mg PO QPM Qty: 2 0RF
Rx Instructions:
Take night of 07/13 and 07/14; then resume Xarelto 20 mg nightly on 07/15.
losartan 50 MG tablet
100 mg PO DAILY Qty: 1 0RF
Rx Instructions:
HOLD IF systolic blood pressure <130 while on post-surgical narcotics.
chlorthalidone 25 mg tablet
25 mg PO DAILY Qty: 1 0RF
Rx Instructions:
HOLD IF systolic blood pressure <130 while on post-surgical narcotics
amlodipine 5 mg Tablet
5 mg PO DAILY Qty: 1 0RF
Rx Instructions:
HOLD IF systolic blood pressure <130 while on post-surgical narcotics.
acetaminophen [Tylenol Extra Strength] 500 MG tablet
1,000 mg PO Q8H Qty: 60 0RF
Rx Instructions:
DO NOT exceed >3000 mg daily.
Referrals:
Ana Paula Dietrich, [Family Provider] -
Activity Restrictions/Additional Instructions:
Paulina Guy had a CAT scan done of her brain which shows no acute injury. Paulina Guy also had an x-ray done of her left hip which shows no trauma to her bone or arthroplasty
Interventions
Interventions:
*Risk Screen - Suicide Last Done: 09/16/24 15:19
*General Assessment Last Done: 09/16/24 15:19
*Neglect/Abuse Screening Last Done: 09/16/24 15:19
*ED COVID-19 Vaccine History Last Done: 09/16/24 15:19
*Nursing Disposition Last Done: 09/16/24 16:25
ED-Musculoskeletal Assessment Last Done: 09/16/24 15:50
Discharge Date and Time
Discharge Date/Time: 09/16/24 16:47
Print Language: [place]
== END 2024-09-16 16:47 | disposition home or self-care (01) ==
LOC: EMR 15:13
PROVIDERS: EMERGENCY PHYSICIAN Emergency Medicine; FAMILY PHYSICIAN Internal Medicine
DX: S09.90XA Unspecified injury of head, initial encounter (principal); S00.03XA Contusion of scalp, initial encounter; W01.0XXA Fall on same level from slipping, tripping and stumbling without subsequent striking against object, initial encounter; I25.10 Atherosclerotic heart disease of native coronary artery without angina pectoris; I48.0 Paroxysmal atrial fibrillation; I10 Essential (primary) hypertension; Z79.01 Long term (current) use of anticoagulants
CPT/HCPCS: 99285; 70450; 73502

== ENCOUNTER → 2024-10-05 08:28 | Outpatient (REF) | payer MEDICARE, SELFPAY ==
[2024-10-05 09:29] LABS: ALT (SGPT) 20 U/L (0-35); AST (SGOT) 23 U/L (14-36); Albumin 4.3 g/dl (3.5-5.0); Alkaline Phosphatase 62 U/L (38-126); Blood Urea Nitrogen 12 mg/dl (7-17); Calcium 9.6 mg/dl (8.4-10.2); Carbon Dioxide 32 mmol/L (22-30); Chloride 104 mmol/L (98-107); Glucose 97 mg/dl (70-99); HDL Cholesterol 83 mg/dl; LDL Cholesterol, Calculated 86 mg/dl; Sodium 141 mmol/L (135-145); Total Bilirubin 0.4 mg/dl (0.2-1.3); Total Cholesterol 194 mg/dl (50-199); Triglyceride 125 mg/dl (10-149); Very Low Density Lipoprotein 25 mg/dl (0-30); eGFR > 60.00
[2024-10-05 09:58] LABS: TSH 3.96 uIU/ml (0.47-4.68)
== END ==
LOC: REG 08:28
PROVIDERS: ATTENDING PHYSICIAN Internal Medicine Cardiovascular Disease
DX: E03.9 Hypothyroidism, unspecified (principal); I10 Essential (primary) hypertension; E78.5 Hyperlipidemia, unspecified
CPT/HCPCS: 36415; 80053; 80061; 84443

== ENCOUNTER 2024-10-17 20:27 | Emergency (ER) | payer MEDICARE, SELFPAY ==
[2024-10-17 20:30] VITALS: BP 169/76
--- NOTE | 2024-10-17 22:49 | ED.GENMED ---
History of Present Illness
General
Chief Complaint: Head Injury
Source: patient
Exam Limitations: none
Time Seen by Provider: 10/17/24 22:40
Nursing documentation reviewed up to this point in time: agreed with
History of Present Illness
History of Present Illness:
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 Hit face on door. No LOC. Has hematoma to her left orbit. Injury occurred tonight. Brought to ED by spouse and daughter for eval,
Past History
Past History
ED Past Medical History: Arrthythmia (Paroxysmal atrial fibrillation), HTN, Hypothyroidism and Other (Osteoarthritis)
ED Past Surgical History: Appendectomy and Cardiac (Atrial myxoma removal 2018)
Patient has exhibited threatening behavior?: No
PSI?: No
Social History
Tobacco: Non-smoker
Alcohol: None
Personal:
Living: with family
Employment: Retired
Family History
Family History: Other (Noncontributory)
Review of Systems
Review of Systems
Allergies reviewed?: Yes
All Other Systems: ROS reviewed and negative except as documented in HPI and ROS
EENT: Reports other (Left orbit swelling and bruising)
Respiratory: Reports no symptoms
Cardiac: Reports no symptoms
ABD/GI: Reports no symptoms
: Reports no symptoms
Musculoskeletal: Reports joint pain (Pain to left orbit)
Skin: Reports other (hematoma to left orbit)
Neurological: Reports no symptoms
Psychiatric: Reports no symptoms
Phy Exam
General Physical Exam
General Presentation: well appearing and no apparent distress
General age: appears stated age
General Skin: warm and dry
General Habitus: normal
General Mental: alert
Eye Exam
Eye Exam: PERRL, EOMI, conjunctiva normal and globe normal
Neurological Exam
Neurological Exam: alert, oriented x3, CN II-XII intact, no motor deficits, no sensory deficits, speech normal and normal gait
Musculoskeletal Exam
Musculoskeletal Exam: full ROM and neuro vasc intact
Skin Exam
Skin Exam: warm/dry, no rash and other (Large hematoma to left orbit)
Psychiatric Exam
Psychiatric Exam: normal mood/affect
Course
Orders/Labs/Results
Orders:
Orders
10/17/24 20:36
CT Cervical Spine W/o Iv Contr Urgent
Comment:
Reason For Exam: fall with head strike, on xarelto
CT Head W/o Iv Contrast Urgent
Comment:
Reason For Exam: fall with head strike, on xarelto
10/17/24 21:22
Facial Bones wo Contrast CT [CT Facial Bones W/o Iv Contras] Urgent
Comment:
Reason For Exam: fall with head strike on xarelto
Vital Signs
Initial and Last Documented VS:
Initial Vital Signs
Temp Pulse Resp BP Pulse Ox
97.8 F 64 18 169/76 99
10/17/24 20:30 10/17/24 20:30 10/17/24 20:30 10/17/24 20:30 10/17/24 20:30
Last Documented Vital Signs
Temp Pulse Resp BP Pulse Ox
97.8 F 64 18 169/76 99
10/17/24 20:30 10/17/24 20:30 10/17/24 20:30 10/17/24 20:30 10/17/24 20:30
*Radiology
Radiology exam reviewed: radiology read reviewed
*Pulse Oximetry
Patient hypoxic: no
*Critical Care Note
Total Time (30-74mins, 75-104mins- exclusive of procedures): Not Applicable
Update Note
Update Note:
Patient to E s/p fall at home. 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 No LOC. Large hematoma to left orbit. CT of head, facial bones, Cspine reviewed. No acute findings. No fractures. Discussed findings with patient and family. She is discharged home,
will follow up [facility] PCP.
ED Attending Note
-
Portions of this chart may have been created with voice recognition software.� Occasional wrong word or��sound alike� substitutions may have occurred due to the inherent limitations of voice recognition software.
Discharge Plan
Departure
Patient Disposition: Home (Routine Discharge)
Date of Disposition: 10/17/24
Time of Disposition: 22:46
Patient with high blood pressure during this ER visit?: No
Condition: Good
Covid-19: Not Applicable
Discharge Problem:
Head injury, Facial contusion
Instructions: Head Injury in Adults (DC), Contusion (DC), Cold therapy for pain
Prescriptions:
No Action
atorvastatin 40 MG tablet
40 mg PO QPM
levothyroxine 88 MCG tablet
88 mcg PO DAILY
multivitamin Tablet
1 tab PO QPM
Xarelto 20 mg Tablet
20 mg PO QPM
calcium carbonate-vitamin D3 600 mg-5 mcg (200 unit) Tablet
1 tab PO QPM
Systane (propylene glycol) 0.4-0.3 % Drops
1 drp BOTH EYES BID PRN (Reason: Eye condition)
coenzyme Q10 [CoQ-10] 100 mg Capsule
100 mg PO QPM
amiodarone 200 mg tablet
200 mg PO DAILY
mupirocin 2 % ointment
1 applic topical BID Qty: 1 0RF
Patient Comments:
Patient administered this medication this am 07/12/23 @06:30. Patient started this medication on 07/09/24 in the morning.
cefadroxil 500 mg capsule
500 mg PO BID Qty: 14 0RF
Rx Instructions:
*Take w/ food
*Take w/ probiotic
*POST-OP USE
dexamethasone 4 mg tablet
4 mg PO BID Qty: 6 0RF
Rx Instructions:
take with food
post-op use only
tramadol 50 mg tablet
50 mg PO Q6H PRN (Reason: 1 tab moderate pain, 2 if severe) Qty: 30 0RF
Rx Instructions:
ongoing therapy
gabapentin 300 mg capsule
300 mg PO HS Qty: 10 0RF
docusate sodium 100 mg Capsule
100 mg PO BID Qty: 30 0RF
prochlorperazine maleate 5 mg Tablet
5 mg PO TID PRN (Reason: nausea and vomiting) Qty: 30 0RF
sennosides [Jazmin-zachary] 8.6 mg Tablet
17.2 mg PO BID Qty: 30 0RF
Xarelto 10 mg Tablet
10 mg PO QPM Qty: 2 0RF
Rx Instructions:
Take night of 07/13 and 07/14; then resume Xarelto 20 mg nightly on 07/15.
losartan 50 MG tablet
100 mg PO DAILY Qty: 1 0RF
Rx Instructions:
HOLD IF systolic blood pressure <130 while on post-surgical narcotics.
chlorthalidone 25 mg tablet
25 mg PO DAILY Qty: 1 0RF
Rx Instructions:
HOLD IF systolic blood pressure <130 while on post-surgical narcotics
amlodipine 5 mg Tablet
5 mg PO DAILY Qty: 1 0RF
Rx Instructions:
HOLD IF systolic blood pressure <130 while on post-surgical narcotics.
acetaminophen [Tylenol Extra Strength] 500 MG tablet
1,000 mg PO Q8H Qty: 60 0RF
Rx Instructions:
DO NOT exceed >3000 mg daily.
Activity Restrictions/Additional Instructions:
Follow up with your family doctor
Interventions
Interventions:
*Risk Screen - Suicide Last Done: 10/17/24 20:30
*General Assessment Last Done: 10/17/24 20:30
*Neglect/Abuse Screening Last Done: 10/17/24 20:30
Discharge Date and Time
Print Language: ITALIAN
== END 2024-10-17 23:52 | disposition home or self-care (01) ==
LOC: EMR 20:27
PROVIDERS: EMERGENCY PHYSICIAN Emergency Medicine; FAMILY PHYSICIAN Internal Medicine
DX: S09.90XA Unspecified injury of head, initial encounter (principal); S00.83XA Contusion of other part of head, initial encounter; W22.09XA Striking against other stationary object, initial encounter; I48.0 Paroxysmal atrial fibrillation; I10 Essential (primary) hypertension; E03.9 Hypothyroidism, unspecified; M19.90 Unspecified osteoarthritis, unspecified site; Z79.01 Long term (current) use of anticoagulants; Z86.018 Personal history of other benign neoplasm; Z90.49 Acquired absence of other specified parts of digestive tract
CPT/HCPCS: 99284; 70450; 70486; 72125

== ENCOUNTER → 2024-12-05 10:05 | Outpatient (REF) | payer MEDICARE, SELFPAY ==
[2024-12-05 11:14] LABS: Hematocrit 32.8 % (37.0-47.0); Hemoglobin 10.3 g/dL (12.0-16.0); Mean Corp Hgb Conc. 31.4 g/dL (33.0-37.0); Mean Corpuscular Volume 80.8 fL (81.0-99.0); Nucleated Red Blood Cells % 0 %; Platelet Count 268 10^3/uL (130-400); Red Cell Dist. Width 16.7 % (11.5-14.5)
[2024-12-05 11:24] LABS: INR 1.40; PT 17.6 Sec (11.4-14.6)
[2024-12-05 11:53] LABS: ALT (SGPT) 23 U/L (0-35); AST (SGOT) 21 U/L (14-36); Albumin 4.7 g/dl (3.5-5.0); Alkaline Phosphatase 58 U/L (38-126); Blood Urea Nitrogen 16 mg/dl (7-17); Calcium 9.6 mg/dl (8.4-10.2); Carbon Dioxide 29 mmol/L (22-30); Chloride 99 mmol/L (98-107); Glucose 128 mg/dl (70-99); Potassium 4.2 mmol/L (3.5-5.1); Sodium 135 mmol/L (135-145); Total Protein 7.3 g/dl (6.3-8.2); eGFR > 60.00
== END ==
LOC: SDSPAT 10:05
PROVIDERS: ATTENDING PHYSICIAN Internal Medicine Cardiovascular Disease; FAMILY PHYSICIAN Internal Medicine; OTHER PHYSICIAN Internal Medicine Cardiovascular Disease
DX: I48.91 Unspecified atrial fibrillation (principal)
CPT/HCPCS: 36415; 80053; 85025; 85610; 86850; 86900; 86901; 87070; 93005

== ENCOUNTER 2024-12-11 05:57 | Inpatient (IN) | payer MEDICARE, SELFPAY ==
[2024-12-05 13:05] VITALS: BMI 24.7
[2024-12-11] VITALS (13 sets, daily range): BP systolic 101–153; BP diastolic 44–71
[2024-12-11] MEDS: NSS 500 IV (06:49)
[2024-12-11 08:46] LABS: ACT-LR - POC 268 Seconds (116-155)
--- NOTE | 2024-12-11 09:10 | ITS.CL.PN ---
Pricing Coordinator - Procedure Note
Procedure
Procedure Note:
Watchman implantation report
Date: December 11, 2024
History: Prior history of right atrial hemangioma resection surgically. History of pulmonary vein isolation and atrial tachycardia ablation and prior history. She is remained quiescent from an arrhythmia perspective but now is having falls and
head trauma and presents for watchman implantation. She has dye allergy and was prepped for procedure.
Gabriel septal puncture: Ulloa
Watchman implant: [place]ll[place]
Procedure report:
After informed consent and patient safety timeout the patient was sedated by the anesthesiology service under general anesthesia. Prior CT scan and XAVIER information were reviewed during our weekly watchman meeting this morning. Under ultrasound
guidance the right femoral vein was accessed via Seldinger technique and an 8 Albanian short sheath was placed. Over a radiofrequency pigtail wire the watchman sheath was brought to the high right atrium and the wire was withdrawn. Please see
separate XAVIER report by Dr. Lainez demonstrating a clear appendage with a 24 to 25 mm ostium. There is significant working depth to allow a 31 mm device delivery. Heparin was given to maintain ACT greater than 300 seconds. Under XAVIER guidance the
Watchman sheath was withdrawn to the interatrial fossa and identified in a low anterior position with the radiofrequency wire delivering radiofrequency and accessing the left atrium. The pigtail wire was advanced into the left atrium and the
Watchman sheath was brought to the left atrium.
Over the pigtail RF wire the pigtail catheter was brought to the left atrium engaged into the left atrial appendage. The patient was prepped with 100 mg of Solu-Cortef and 25 mg of Benadryl prior to dye injection. Dye injection demonstrated a
cauliflower shape with a 25 mm ostium and significant working depth. The 31 mm device was delivered distally with forward pressure in an ostial position. 19 to 23% compression was noted into separate tug test were performed without migration of
the device or significant movement of the device. Dye injection demonstrated seal without leak and once the device met Pass criteria the device was delivered. Sheath and catheters were withdrawn to the right atrium and protamine was given.
[id number] suture was given to the right femoral vein after withdrawal of the sheath. There was no pericardial effusion post procedure.
Impression:
31 mm device delivery Watchman device.
Recommendations:
Xarelto 20 mg daily x 3 months until 3-month XAVIER which is scheduled and if XAVIER does not demonstrate any device related thrombus or leak we will stop Xarelto and switch to daily aspirin at that time.
CC: Dr. Jeremiah Oates
--- NOTE | 2024-12-13 11:32 | W.DS.TRANS ---
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
-
Discharge Instructions:
Discharge Diagnosis/Procedures Afib, prior cardiac surgery, watchman implant
Diet Low Cholesterol
Activity No strenuous activity
Additional Activity no strenuous activity x 5d
Driving Restrictions No driving for 24 hours
Bathing Restrictions OK to Shower
Others Tests YOUR XAVIER IS SCHEDULED FOR 03/20/2025. YOU WILL
RECEIVE A PHONE CALL WITH INSTRUCTIONS AND TIME
OF ARRIVAL.
Instructions: Electrophysiology Study (DC)
Stand-Alone Forms: DC Instructions- Cath/EP Lab
Changes to Home Medications: No
Discharge Medications:
DC Medications w/original date entered in [employer]
atorvastatin 40 mg tablet 40 mg PO QPM High cholesterol 01/04/18
levothyroxine 88 mcg tablet 100 mcg PO DAILY Thyroid 01/04/18
multivitamin 1 tab PO QPM Supplement 04/20/22
rivaroxaban 20 mg tablet (Xarelto) 20 mg PO QPM Blood clot prevention/tx 04/20/22
calcium 600 mg (as carbonate)-vitamin D3 5 mcg (200 unit) tablet 1 tab PO QPM Supplement 07/01/22
peg 400-propylene glycol 0.4 %-0.3 % eye drops (Systane (propylene glycol)) 1 drp BOTH EYES BID PRN Eye condition 07/01/22
coenzyme Q10 100 mg capsule (CoQ-10) 100 mg PO QPM 02/08/23
amiodarone 200 mg tablet 100 mg PO DAILY 06/12/24
acetaminophen 500 mg tablet (Tylenol Extra Strength) 1,000 mg (2 x 500 mg) PO Q8H #60 tabs 07/12/24
amlodipine 5 mg tablet 5 mg PO DAILY Blood pressure #1 tab 07/12/24
chlorthalidone 25 mg tablet 25 mg PO DAILY #1 tab 07/12/24
losartan 50 mg tablet 100 mg (2 x 50 mg) PO DAILY Blood pressure #1 tab 07/12/24
Home Medication Changes
Pending Results: No
== END 2024-12-11 14:10 | disposition home or self-care (01) | DRG 274 ==
LOC: CATH-IN 05:57
PROVIDERS: Internal Medicine; ADMITTING PHYSICIAN Internal Medicine Cardiovascular Disease; FAMILY PHYSICIAN Internal Medicine
PROC: B24BZZ4 Ultrasonography of Heart with Aorta, Transesophageal (ICD-10-PCS; 2024-12-11)
PROC: 02L73DK Occlusion of Left Atrial Appendage with Intraluminal Device, Percutaneous Approach (ICD-10-PCS; 2024-12-11)
DX: I48.0 Paroxysmal atrial fibrillation (principal); Z00.6 Encounter for examination for normal comparison and control in clinical research program; I50.32 Chronic diastolic (congestive) heart failure; I48.92 Unspecified atrial flutter; I47.19 Other supraventricular tachycardia; E78.5 Hyperlipidemia, unspecified; I11.0 Hypertensive heart disease with heart failure; M19.90 Unspecified osteoarthritis, unspecified site; I25.10 Atherosclerotic heart disease of native coronary artery without angina pectoris; R29.6 Repeated falls; R26.9 Unspecified abnormalities of gait and mobility; D64.9 Anemia, unspecified; E03.9 Hypothyroidism, unspecified; Z91.041 Radiographic dye allergy status; Z79.01 Long term (current) use of anticoagulants
CPT/HCPCS: 33340; 85347; 93005; 93355; C1894; Q9967

== ENCOUNTER 2025-03-20 07:02 | Day surgery (SDC) | payer MEDICARE, SELFPAY ==
[2025-03-20 07:26] VITALS: BMI 27.2
== END 2025-03-20 09:16 | disposition home or self-care (01) ==
LOC: CATH 07:02
PROVIDERS: ATTENDING PHYSICIAN Internal Medicine Cardiovascular Disease; FAMILY PHYSICIAN Internal Medicine; OTHER PHYSICIAN Internal Medicine Cardiovascular Disease
DX: Z45.09 Encounter for adjustment and management of other cardiac device (principal); R29.6 Repeated falls; I48.91 Unspecified atrial fibrillation; I10 Essential (primary) hypertension; R09.02 Hypoxemia; I25.10 Atherosclerotic heart disease of native coronary artery without angina pectoris; E03.9 Hypothyroidism, unspecified; Z79.890 Hormone replacement therapy; Z79.899 Other long term (current) drug therapy; Z79.01 Long term (current) use of anticoagulants
CPT/HCPCS: 93312; 93320; 93325

== ENCOUNTER → 2025-04-03 09:58 | Outpatient (REF) | payer MEDICARE, SELFPAY ==
[2025-04-03 13:05] LABS: ALT (SGPT) 18 U/L (0-35); AST (SGOT) 22 U/L (14-36); Albumin 4.3 g/dl (3.5-5.0); Alkaline Phosphatase 63 U/L (38-126); Blood Urea Nitrogen 10 mg/dl (7-17); Calcium 9.4 mg/dl (8.4-10.2); Carbon Dioxide 33 mmol/L (22-30); Chloride 101 mmol/L (98-107); Glucose 91 mg/dl (70-99); HDL Cholesterol 77 mg/dl; LDL Cholesterol, Calculated 89 mg/dl; Potassium 3.6 mmol/L (3.5-5.1); Sodium 136 mmol/L (135-145); Total Protein 7.2 g/dl (6.3-8.2); Very Low Density Lipoprotein 24 mg/dl (0-30); eGFR > 60.00
[2025-04-03 13:06] LABS: TSH 2.08 uIU/ml (0.47-4.68)
== END ==
LOC: REG 09:58
PROVIDERS: ATTENDING PHYSICIAN Internal Medicine Cardiovascular Disease; FAMILY PHYSICIAN Internal Medicine
DX: I10 Essential (primary) hypertension (principal); E03.9 Hypothyroidism, unspecified; T46.2X Poisoning by, adverse effect of and underdosing of other antidysrhythmic drugs
CPT/HCPCS: 36415; 71046; 80053; 80061; 84443